=== PATIENT | female | born 1950 | race African-American/Black ===

== ENCOUNTER 2019-04-25 15:30 | Emergency (ER) | payer OTHER ==
[2019-04-25 15:35] VITALS: BP 165/97; PULSE 97; TEMP 98; BMI 31.8
--- NOTE | 2019-04-25 15:36 | PDOC ---
Rapid Medical Evaluation Time Seen by Provider: 04/25/19 15:33 Medical Evaluation: Allergies Allergy/AdvReac Type Severity Reaction Status Date / Time Penicillins Allergy Verified 05/12/14 12:00 04/25/19 15:34 I have performed a brief in-person evaluation of this patient. The patient presents with a chief complaint of: fell in parking lot wednesday, bruising to R knee Pertinent physical exam findings: ambulatory, weight bearing, full flexion/ extension I have ordered the following: xray The patient will proceed to the ED for further evaluation. Discharge Disposition - Diagnosis Right knee pain - Referrals - Patient Instructions - Post Discharge Activity
[2019-04-25] MEDS ORDERED: NAPROXEN 500 MG TABLET (FP) PO ONE (16:18)
[2019-04-25] MEDS ORDERED: NAPROXEN 500 MG TABLET (FP) ONE (16:19)
--- NOTE | 2019-04-25 16:25 | PDOC ---
History of Present Illness - General Chief Complaint: Pain Stated Complaint: LT. KNEE/LOWER BACK PAIN/ FALL Time Seen by Provider: 04/25/19 15:33 History Source: Patient Exam Limitations: Clinical Condition - History of Present Illness Initial Comments: 04/25/19 16:26 Patient with no significant past medical history presented with complaint of swelling and pain to anterior knee of left lower extremity status post slipping and fall 5 days ago while out of state in [place] at a fast food restaurant. Patient reported starting with mild pain to knee few hours later and now has worsening and now beginning to have left lower back pain for the past 2 days. Patient reports taking Aleve for pain with minimal improvement. Denies numbness or tingling sensation. Denies any other symptoms Occurred: reports: other (5 days) Past History - Past Medical History Allergies/Adverse Reactions: Allergies Allergy/AdvReac Type Severity Reaction Status Date / Time Penicillins Allergy Verified 04/25/19 15:36 Home Medications: Ambulatory Orders Losartan/Hydrochlorothiazide [Losartan-Hctz 100-12.5 mg Tab] 1 each PO DAILY COPD: No HTN: Yes Hypercholesterolemia: Yes - Psycho Social/Smoking Cessation Hx Smoking Status: No Smoking History: Never smoked Number of Cigarettes Smoked Daily: 20 'Breaking Loose' booklet given: 05/12/14 Hx Alcohol Use: No Review of Systems - Review of Systems Able to Perform ROS?: Yes Is the patient limited Thai proficient: No Constitutional: No: Malaise, Weakness HEENTM: No: Symptoms Reported Respiratory: No: Symptoms reported Cardiac (ROS): No: Symptoms Reported ABD/GI: No: Symptoms Reported Musculoskeletal: Yes: Symptoms Reported, See HPI, Joint Pain (left knee), Joint Swelling (anterior left knee), Muscle Pain (anterior left knee pain) Integumentary: Yes: Symptoms Reported, Other (swelling to left knee) Neurological: No: Symptoms reported, Numbness, Paresthesia, Tingling All Other Systems: Reviewed and Negative *Physical Exam - Vital Signs Last Vital Signs Temp Pulse Resp BP Pulse Ox 98 F 97 H 18 165/97 98 04/25/19 15:33 04/25/19 15:33 04/25/19 15:33 04/25/19 15:33 04/25/19 15:33 - Physical Exam Comments: 04/25/19 16:22 GENERAL: Well developed, well nourished. Awake and alert in mild acute distress. PULMONARY: No evidence of respiratory distress. MUSCULOSKELETAL : Moderate tenderness to anterior patella of left knee with moderate swelling to anterior patella of left knee. No tenderness to medial lateral collateral ligament of left knee. Negative anterior posterior drawer test. No bony deformities SKIN: Warm and dry. Normal capillary refill. Moderate localized swelling to anterior patella of left knee. No ecchymosis . NEUROLOGICAL: Alert, awake, appropriate. No motor deficits in the lower extremities. Gait is normal without ataxia. PSYCHIATRIC: Cooperative. Good eye contact. Appropriate mood and affect. General Appearance: Yes: Nourished, Appropriately Dressed, Mild Distress ED Treatment Course - RADIOLOGY Radiology Studies Ordered: Category Date Time Status KNEE 3 POS-LEFT [RAD] Stat Radiology 04/25/19 16:01 Ordered Medical Decision Making - Medical Decision Making 04/25/19 16:28 Patient with no significant past medical history presented with complaint of swelling and pain to anterior knee of left lower extremity status post slipping and fall 5 days ago while out of state in [place] at a fast food restaurant. Patient reported starting with mild pain to knee few hours later and now has worsening and now beginning to have left lower back pain for the past 2 days. Patient reports taking Aleve for pain with minimal improvement. Denies numbness or tingling sensation. Denies any other symptoms Exam significant for moderate soft tissue swelling to anterior patella of left knee with no tenderness to medial lateral collateral ligament. Mild tenderness to left paravertebral muscle of lumbar spine of L1-5. Negative anterior- posterior drawer test of left knee. X-ray of left knee shows no acute fracture or dislocation. Patient symptoms likely knee contusion with back strain due to the way pt has been ambulating. Naproxen 500 mg p.o. ordered for pain. Left knee wrapped with Nelson bandage. Patient stable for discharge on naproxen as needed for pain with advised to do hot compress and keep left extremity elevated with orthopedics follow-up as needed Discharge - Discharge Information Problems reviewed: Yes Clinical Impression/Diagnosis: Contusion of left knee, initial encounter Right knee pain Qualifiers: Chronicity: acute Qualified Code(s): M25.561 - Pain in right knee Condition: Stable Disposition: HOME - Admission No - Follow up/Referral Referrals: Be Ruff DO [Staff Physician] - - Patient Discharge Instructions Patient Printed Discharge Instructions: DI for Knee Sprain, DI for Knee Effusion Additional Instructions: X-ray of left knee shows no acute fracture or dislocation. pain symptoms likely knee contusion. Take prescribed medication as needed for pain. Apply heat to the area 2-3 times a day as needed for swelling. Use provided Nelson wrap to keep knee stable and keep leg elevated for the next 2 to 3 days. Follow-up referred to orthopedics as needed if no improvement in 4 days - Post Discharge Activity
== END 2019-04-25 16:28 | disposition home or self-care (01) ==
LOC: JERFT 15:30
DX: S80.02XA Contusion of left knee, initial encounter (principal); S39.012A Strain of muscle, fascia and tendon of lower back, initial encounter; W18.39XA Other fall on same level, initial encounter; Y93.89 Activity, other specified; Y92.511 Restaurant or cafe as the place of occurrence of the external cause; Y99.8 Other external cause status; I10 Essential (primary) hypertension; E78.00 Pure hypercholesterolemia, unspecified; Z88.0 Allergy status to penicillin
CPT/HCPCS: 73562-TC-LT-FY; 99281-25

== ENCOUNTER 2019-08-04 12:00 | Emergency (ER) | payer OTHER ==
[2019-08-04 12:05] VITALS: BP 140/74; PULSE 94; TEMP 98.1; BMI 31.9
[2019-08-04] MEDS ORDERED: IBUPROFEN 400 MG TABLET (FP) PO ONE ×2 (13:02→13:03)
--- NOTE | 2019-08-04 13:10 | PDOC ---
History of Present Illness - General Chief Complaint: Injury Stated Complaint: RT. ANKLE PAIN Time Seen by Provider: 08/04/19 12:16 History Source: Patient Exam Limitations: Clinical Condition - History of Present Illness Initial Comments: 08/04/19 13:11 Patient with no significant past medical history present with complaint of persistent right ankle pain which is worse with ambulation status post slip on a curbside twisting right ankle 5 days ago. Patient report swelling to lateral aspect of right ankle which has been improving. Patient has not taken anything for pain. Denies numbness or tingling sensation. Patient denies hitting head or loss of consciousness. Denies any other symptoms Occurred: reports: other (5 days) Past History - Past Medical History Allergies/Adverse Reactions: Allergies Allergy/AdvReac Type Severity Reaction Status Date / Time Penicillins Allergy Verified 08/04/19 12:02 Home Medications: Ambulatory Orders Losartan/Hydrochlorothiazide [Losartan-Hctz 100-12.5 mg Tab] 1 each PO DAILY Ibuprofen 600 mg PO Q8H PRN #20 tablet 08/04/19 COPD: No HTN: Yes Hypercholesterolemia: Yes - Psycho Social/Smoking Cessation Hx Smoking Status: No Smoking History: Never smoked Have you smoked in the past 12 months: No Number of Cigarettes Smoked Daily: 20 Information on smoking cessation initiated: No 'Breaking Loose' booklet given: 05/12/14 Hx Alcohol Use: No Drug/Substance Use Hx: No Review of Systems - Review of Systems Able to Perform ROS?: Yes Is the patient limited Upper Sorbian proficient: No Constitutional: No: Malaise, Night Sweats, Weakness HEENTM: No: Symptoms Reported, See HPI, Eye Pain, Blurred Vision, Tearing, Recent change in vision, Double Vision, Cataracts, Ear Pain, Ocular Prothesis, Ear Discharge, Nose Pain, Nose Congestion, Tinnitus, Nose Bleeding, Hearing Loss , Throat Pain, Throat Swelling, Mouth Pain, Dental Problems, Difficulty Swallowing, Mouth Swelling, Other Respiratory: No: Symptoms reported, See HPI, Cough, Orthopnea, Shortness of Breath, SOB with Exertion, SOB at Rest, Stridor, Wheezing, Productive cough, Hemoptysis, Other Cardiac (ROS): No: Symptoms Reported, See HPI, Chest Pain, Edema, Irregular Heart Rate, Lightheadedness, Palpitations, Syncope, Chest Tightness, Other Musculoskeletal: Yes: Symptoms Reported, See HPI, Joint Pain (right ankle), Joint Swelling (right ankle), Muscle Pain (lateral aspect of right ankle and foot pain) Integumentary: Yes: Symptoms Reported, See HPI, Other (swelling to lateral of right ankle) Neurological: No: Symptoms reported, Headache, Paresthesia, Tingling, Weakness All Other Systems: Reviewed and Negative *Physical Exam - Vital Signs Last Vital Signs Temp Pulse Resp BP Pulse Ox 98.1 F 94 H 20 140/74 98 08/04/19 12:03 08/04/19 12:03 08/04/19 12:03 08/04/19 12:03 08/04/19 12:03 - Physical Exam 08/04/19 13:06 GENERAL: Well developed, well nourished. Awake and alert in mild acute distress. PULMONARY: No evidence of respiratory distress. MUSCULOSKELETAL : Moderate tenderness over lateral malleolus of right ankle and proximal lateral aspect of right foot. Mild localized swelling over lateral malleolus of right ankle lateral aspect of right foot. No tenderness over medial aspect of right foot or ankle. Negative anterior and posterior drawer test of right ankle. No bruising or ecchymosis to right ankle or foot SKIN: Warm and dry. Normal capillary refill. Mild localized swelling over lateral aspect of right ankle and foot. No swelling over medial aspect of right ankle. No bruising or ecchymosis to right ankle or foot NEUROLOGICAL: Alert, awake, appropriate. No motor deficits in the lower extremities. Gait is normal with mild limp on right foot from pain. PSYCHIATRIC: Cooperative. Good eye contact. Appropriate mood and affect. General Appearance: Yes: Nourished, Appropriately Dressed, Mild Distress ED Treatment Course - RADIOLOGY Radiology Studies Ordered: Category Date Time Status ANKLE & FOOT-RIGHT* [RAD] Stat Radiology 08/04/19 12:33 Completed - Medications Given in the ED: ED Medications Discontinued Medications Generic Name Dose Route Start Last Admin Trade Name Freq PRN Reason Stop Dose Admin Ibuprofen 800 mg 08/04/19 13:02 08/04/19 13:04 Motrin - PO 08/04/19 13:03 800 mg ONCE ONE Administration Medical Decision Making - Medical Decision Making 08/04/19 13:12 Patient with no significant past medical history present with complaint of persistent right ankle pain which is worse with ambulation status post slip on a curbside twisting right ankle 5 days ago. Patient report swelling to lateral aspect of right ankle which has been improving. Patient has not taken anything for pain. Denies numbness or tingling sensation. Patient denies hitting head or loss of consciousness. Denies any other symptoms Exam significant for moderate tenderness to lateral malleolus of right ankle with mild tenderness over lateral aspect of right proximal foot. Mild swelling over lateral aspect of right ankle and foot. Negative anterior and posterior drawer test of right ankle. X-ray of right ankle and foot shows no acute fracture dislocation. Patient symptoms likely ankle sprain. Motrin 800 mg p.o. given for pain. Right ankle and foot wrapped with Nelson bandage and placed in Aircast splint. Postop shoe given to patient to help with ambulation. Patient stable for discharge on Motrin as needed for pain with advised to do hot compresses to ankle with orthopedics follow-up Discharge - Discharge Information Problems reviewed: Yes Clinical Impression/Diagnosis: Right knee pain Qualifiers: Chronicity: acute Qualified Code(s): M25.561 - Pain in right knee Right ankle sprain Qualifiers: Encounter type: initial encounter Involved ligament of ankle: unspecified ligament Qualified Code(s): S93.401A - Sprain of unspecified ligament of right ankle, initial encounter Condition: Stable Disposition: HOME - Admission No - Additional Discharge Information Prescriptions: Ibuprofen 600 mg PO Q8H PRN #20 tablet PRN Reason: pain - Follow up/Referral Referrals: Be Ruff DO [Staff Physician] - - Patient Discharge Instructions Patient Printed Discharge Instructions: DI for Ankle Sprain Additional Instructions: Use provided ankle bracing Nelson bandage to help support right ankle. Take prescribed Motrin as needed for pain. Apply hot compress to ankle as needed for swelling. Soak ankle and foot in [place] salt water as discussed to help with pain. Follow-up referred to orthopedics if symptoms persist for more than 4 days - Post Discharge Activity
== END 2019-08-04 13:12 | disposition home or self-care (01) ==
LOC: JERFT 12:00
DX: S93.401A Sprain of unspecified ligament of right ankle, initial encounter (principal); M25.561 Pain in right knee; W10.1XXA Fall (on)(from) sidewalk curb, initial encounter; Y93.89 Activity, other specified; Y92.480 Sidewalk as the place of occurrence of the external cause; Y99.8 Other external cause status; I10 Essential (primary) hypertension; E78.00 Pure hypercholesterolemia, unspecified; Z88.0 Allergy status to penicillin
CPT/HCPCS: 73610-TC-RT-FY; 73630-TC-RT-FY; 99283-25

== ENCOUNTER 2023-10-02 11:29 | Emergency (ER) | payer OTHER ==
[2023-10-02 11:40] VITALS: BP 146/76; PULSE 76; RESP 18; TEMP 98.6; BMI 30.7
[2023-10-02] MEDS ORDERED: ACETAMINOPHEN 325 MG TABLET (FP) ONE (12:05)
[2023-10-02] MEDS: ACETAMINOPHEN 500 MG TABLET (FP) PO ONE (12:33)
== END 2023-10-02 13:19 | disposition home or self-care (01) ==
LOC: JER 11:29
DX: S93.401A Sprain of unspecified ligament of right ankle, initial encounter (principal); S80.911A Unspecified superficial injury of right knee, initial encounter; M25.561 Pain in right knee; M25.571 Pain in right ankle and joints of right foot; W18.39XA Other fall on same level, initial encounter
CPT/HCPCS: 73562-TC-RT-FY; 73610-TC-RT-FY; 73630-TC-RT-FY; 99283-25

== ENCOUNTER 2023-11-13 15:11 | Emergency (ER) | payer OTHER ==
[2023-11-13 15:21] VITALS: BP 161/86; PULSE 73; RESP 16; TEMP 99.5; BMI 29.5
[2023-11-13 16:06] LABS: BASO % 0.6 % (0-2.0); EOS % 4.2 % (0-4.5); HEMOGLOBIN 12.8 GM/dL (10.7-15.3); MCH 30.4 pg (25.7-33.7); MCHC 33.8 g/dl (32.0-36.0); MEAN PLT VOLUME 7.1 fl (7.5-11.1); NEUT % 56.2 % (42.8-82.8); PLATELET COUNT 322 10^3/uL (134-434); RBC 4.23 M/mm3 (3.60-5.2); RDW 14.7 % (11.6-15.6)
[2023-11-13 16:21] LABS: EPI CELLS >36 /uL (0-25.1); HYALINE CASTS 5 /uL (0-3.1); PH,URINE 5.5 (5.0-8.0); URINE APPEARANCE CLOUDY; URINE BACTERIA 574 /uL (0-1359); URINE BILIRUBIN NEGATIVE (NEGATIVE); URINE COLOR YELLOW; URINE GLUCOSE (UA) NEGATIVE (NEGATIVE); URINE KETONE TRACE (NEGATIVE); URINE LEUK ESTERASE 2+ (NEGATIVE); URINE NITRITE NEGATIVE (NEGATIVE); URINE PROTEIN TRACE (NEGATIVE); URINE RBC 14 /uL (0-23.9); URINE WBC 581 /uL (0-25.8)
[2023-11-13 16:29] LABS: POTASSIUM 4.3 mmol/L (3.5-5.1)
[2023-11-13 16:32] LABS: ALBUMIN 3.6 g/dl (3.4-5.0); CALCIUM 10.2 mg/dL (8.5-10.1)
[2023-11-13 16:33] LABS: BLOOD UREA NITROGEN 22.5 mg/dL (7-18)
[2023-11-13 16:36] LABS: CREATININE 1.2 mg/dL (0.55-1.3)
[2023-11-13 16:37] LABS: BILIRUBIN,TOTAL 0.4 mg/dL (0.2-1); TOT PROT 7.1 g/dl (6.4-8.2)
[2023-11-13] MEDS ORDERED: ACETAMINOPHEN 325 MG TABLET (FP) ONE (17:46)
[2023-11-13] MEDS: ACETAMINOPHEN 325 MG TABLET (FP) PO ONE (17:48)
== END 2023-11-13 18:00 | disposition home or self-care (01) ==
LOC: JER 15:11 → JERFT 15:11 → JER 18:00
DX: M62.830 Muscle spasm of back (principal); M54.9 Dorsalgia, unspecified; R07.81 Pleurodynia; K59.00 Constipation, unspecified
CPT/HCPCS: 36415; 71250-TC; 74176-TC; 80053; 81003; 85025; 99283-25